=== PATIENT | female | born 1990 | race Caucasian/White ===

== ENCOUNTER 2022-05-21 14:03 | Outpatient (CLI) | payer OTHER, SELFPAY ==
[2022-05-21 17:13] LABS: Cholesterol* 210 mg/dL (90-199); HDL Cholesterol* 78 mg/dL (>=50); LDL Cholesterol Calculated 121 mg/dL (<100); Triglycerides* 53 mg/dL (40-149)
[2022-05-21 17:42] LABS: Glucose* 88 mg/dL (60-115)
[2022-05-21 18:07] LABS: Chlamydia DNA Amplified* NOT DETECTED (No Detected); GC DNA Amplified* NOT DETECTED (No Detected)
== END 2022-05-21 14:04 | disposition home or self-care (01) ==
PROVIDERS: Visit Provider Registered Nurse
DX: Z01.419 Encounter for gynecological examination (general) (routine) without abnormal findings (principal); Z11.3 Encounter for screening for infections with a predominantly sexual mode of transmission; Z13.6 Encounter for screening for cardiovascular disorders; Z13.1 Encounter for screening for diabetes mellitus; Z12.4 Encounter for screening for malignant neoplasm of cervix
CPT/HCPCS: 80061; 82947; 87491; 87591; 87624; 88174; 88175